=== PATIENT | male | born 1990 | race Caucasian/White ===

== ENCOUNTER 2019-01-18 14:04 | Observation (INO) | payer SELFPAY ==
[2019-01-18] MEDS ORDERED: Sodium Chloride 0.9% 1,000 ML IV ONE ×2 (14:21→16:44)
[2019-01-18] MEDS ORDERED: Ketorolac 30 MG/ML SDV IVPUSH ONE (14:21)
[2019-01-18 15:15] LABS: BLOOD UREA NITROGEN,BUN 8 mg/dL (7.0-18.0); CARBON DIOXIDE,CO2 28.1 mmol/L (21.0-32.0); CHLORIDE,CL 99 mmol/L (98-107); GLUCOSE RANDOM 90 mg/dL (74-106); LIPASE 119 U/L (73-393); POTASSIUM,K 4.1 mmol/L (3.5-5.1); SODIUM,NA 137 mmol/L (136-148)
--- NOTE | 2019-01-18 16:11 | CT ---
CT abdomen and pelvis Technique: Multiple axial sections were obtained from above the dome of the diaphragm inferiorly through the pubic symphysis. Intravenous contrast was utilized. No oral contrast has been given. Findings: Inflammatory change is seen within the left lower abdomen which surrounds a diverticuli near the junction of the descending and sigmoid colons compatible with moderately severe diverticulitis. No free fluid is seen to indicate abscess. Lung bases show nothing acute. Liver contains no focal parenchymal abnormality. Spleen appears within normal limits. Adrenal glands show no nodule. Pancreas is within normal limits. Kidneys show symmetric contrast enhancement without hydronephrosis or mass. Aorta shows no aneurysm. No retroperitoneal adenopathy or mesenteric abnormalities are seen. No pelvic mass or adenopathy is seen. No free fluid is seen. Bone window settings were reviewed which shows anterior wedge deformities within the lower thoracic spine which are most likely old as there is associated disc space narrowing. Nothing acute is suspected within the visualized osseous structures. Impression: 1. Findings compatible with moderately severe diverticulitis as noted above. 2. Other findings believed to be incidental. Diagnostic code #3 This report was dictated in [place] Standard Time MTDD
[2019-01-18] MEDS ORDERED: metroNIDAZOLE/Normal Saline 500 MG in Premix Bag 1 BAG IV ONE (16:14)
[2019-01-18] MEDS ORDERED: Ciprofloxacin in D5W 400 MG in Premix Bag 1 BAG IV STA ×2 (16:14)
--- NOTE | 2019-01-18 16:14 | EDM.PDOC ---
ED HPI GENERAL MEDICAL PROBLEM - General Chief Complaint: Abdominal Pain Stated Complaint: ABD PAIN Time Seen by Provider: 01/18/19 14:05 Source of Information: Reports: Patient History Limitations: Reports: No Limitations - History of Present Illness INITIAL COMMENTS - FREE TEXT/NARRATIVE: HISTORY AND PHYSICAL: History of present illness: Patient is a 28-year-old male who presents to the emergency room today with complaints of left lower quadrant pain 4 days. He states over the past 4 days the pain has progressively gotten worse which she describes as a sharp stabbing pain. Patient denies any fever, chills, headache, change in vision, syncope or near syncope. Denies any chest pain, back pain, shortness of breath or cough. Denies any nausea, vomiting, diarrhea, constipation or dysuria. Has not noted any blood in urine or stool. Patient has been eating and drinking appropriately. No previous history of any GI or problems. Review of systems: As per history of present illness and below otherwise all systems reviewed and negative. Past medical history: As per history of present illness and as reviewed below otherwise noncontributory. Surgical history: As per history of present illness and as reviewed below otherwise noncontributory. Social history: See social history for further information Family history: As per history of present illness and as reviewed below otherwise noncontributory. Physical exam: General: Well-developed and well-nourished 28-year-old male. Alert and oriented. Nontoxic appearing and in no acute distress. HEENT: Atraumatic, normocephalic, pupils equal and reactive bilaterally, negative for conjunctival pallor or scleral icterus, mucous membranes moist, TMs normal bilaterally, throat clear, neck supple, nontender, trachea midline. No drooling or trismus noted. No meningeal signs. No hot potato voice noted. Lungs: Clear to auscultation, breath sounds equal bilaterally, chest nontender. Heart: S1S2, regular rate and rhythm without overt murmur Abdomen: Soft, nondistended, left lower quadrant tenderness to palpation. Negative for masses or hepatosplenomegaly. Negative for costovertebral tenderness. Pelvis is stable nontender. Skin: Intact, warm, dry. No lesions or rashes noted. Extremities: Atraumatic, moves all extremities per self without difficulty or deficits, negative for cords or calf pain. Neurovascular unremarkable. Neuro: Awake, alert, oriented. Cranial nerves II through XII unremarkable. Cerebellum unremarkable. Motor and sensory unremarkable throughout. Exam nonfocal. Notes: Patient does have an elevated white count. CT shows moderately severe diverticulitis. General surgeon, Dr. Polo was here and did review the patient's CT scan. States patient can be admitted to medical surgical floor and consult him if needed. Dr. Hart was consulted and agreeable to accepting this patient. Diagnostics: CBC, CMP, UA, Lipase, CT Abd/Pelvis Therapeutics: IV fluids, Toradol, Cipro, Flagyl Impression: Diverticulitis Plan: Observation admission to Med/Surg Definitive disposition and diagnosis as appropriate pending reevaluation and review of above. LLQ Pain Score (Numeric/FACES): 8 - Related Data Allergies Allergy/AdvReac Type Severity Reaction Status Date / Time No Known Allergies Allergy Verified 01/18/19 14:13 Home Meds: Home Meds . [No Known Home Meds] 01/18/19 [History] Past Medical History - Past Health History Medical/Surgical History: Denies Medical/Surgical History Social & Family History - Family History Family Medical History: Noncontributory - Tobacco Use Smoking Status *Q: Never Smoker - Recreational Drug Use Recreational Drug Use: No ED ROS GENERAL - Review of Systems Review Of Systems: Comprehensive ROS is negative, except as noted in HPI. ED EXAM, GI/ABD - Physical Exam Exam: See Below (See dictation) Course - Vital Signs Last Recorded V/S: Last Vital Signs Temp 98.3 F 01/18/19 14:14 Pulse 117 H 01/18/19 14:14 Resp 18 01/18/19 14:14 BP 165/102 H 01/18/19 14:14 Pulse Ox 97 01/18/19 14:14 - Orders/Labs/Meds Orders: Active Orders 24 hr Category Date Time Status Admission Status [Patient Status] [ADT] Stat ADT 01/18/19 16:16 Ordered UA W/MICROSCOPIC [URIN] Stat Lab 01/18/19 16:10 Results Ciprofloxacin in D5W [Cipro in D5W 400 MG/200 ML] 400 Med 01/18/19 16:14 Ordered mg Premix Bag 1 bag IV NOW metroNIDAZOLE/Normal Saline [Flagyl 500 MG in NS 100 ML Med 01/18/19 16:14 Ordered ] 500 mg Premix Bag 1 bag IV ONETIME Medication Orders Ciprofloxacin/Dextrose 400 mg/ (Premix) 200 mls @ 200 mls/hr IV NOW STA Stop: 01/18/19 17:13 Metronidazole 500 mg/ Premix 100 mls @ 100 mls/hr IV ONETIME ONE Stop: 01/18/19 17:13 Labs: Laboratory Tests 01/18/19 01/18/19 01/18/19 Range/Units 14:43 14:43 16:10 WBC 17.78 H (4.0-11.0) K/uL RBC 5.06 (4.50-5.90) M/uL Hgb 16.5 (13.0-17.0) g/dL Hct 47.1 (38.0-50.0) % MCV 93.1 (80.0-98.0) fL MCH 32.6 H (27.0-32.0) pg MCHC 35.0 (31.0-37.0) g/dL RDW Std Deviation 43.8 (28.0-62.0) fl RDW Coeff of Mata 13 (11.0-15.0) % Plt Count 239 (150-400) K/uL MPV 10.20 (7.40-12.00) fL Neut % (Auto) 79.1 (48.0-80.0) % Lymph % (Auto) 11.4 L (16.0-40.0) % [place] % (Auto) 9.2 (0.0-15.0) % Eos % (Auto) 0.1 (0.0-7.0) % Baso % (Auto) 0.2 (0.0-1.5) % Neut # (Auto) 14.1 H (1.4-5.7) K/uL Lymph # (Auto) 2.0 (0.6-2.4) K/uL [place] # (Auto) 1.6 H (0.0-0.8) K/uL Eos # (Auto) 0.0 (0.0-0.7) K/uL Baso # (Auto) 0.0 (0.0-0.1) K/uL Nucleated RBC % 0.0 /100WBC Nucleated RBCs # 0 K/uL Sodium 137 (136-148) mmol/L Potassium 4.1 (3.5-5.1) mmol/L Chloride 99 (98-107) mmol/L Carbon Dioxide 28.1 (21.0-32.0) mmol/L BUN 8 (7.0-18.0) mg/dL Creatinine 1.0 (0.8-1.3) mg/dL Est Cr Clr Drug Dosing 118.18 mL/min Estimated GFR (MDRD) > 60.0 ml/min Glucose 90 (74-106) mg/dL Calcium 9.4 (8.5-10.1) mg/dL Total Bilirubin 0.8 (0.2-1.0) mg/dL AST 18 (15-37) IU/L ALT 49 (14-63) IU/L Alkaline Phosphatase 129 H (46-116) U/L Total Protein 8.7 H (6.4-8.2) g/dL Albumin 4.2 (3.4-5.0) g/dL Globulin 4.5 H (2.6-4.0) g/dL Albumin/Globulin Ratio 0.9 (0.9-1.6) Lipase 119 (73-393) U/L Urine Color YELLOW Urine Appearance CLEAR Urine pH 7.0 (5.0-8.0) Ur Specific [place] 1.010 (1.001-1.035) Urine Protein TRACE H (NEGATIVE) mg/dL Urine Glucose (UA) NEGATIVE (NEGATIVE) mg/dL Urine Ketones NEGATIVE (NEGATIVE) mg/dL Urine Occult Blood NEGATIVE (NEGATIVE) Urine Nitrite NEGATIVE (NEGATIVE) Urine Bilirubin NEGATIVE (NEGATIVE) Urine Urobilinogen 0.2 (<2.0) EU/dL Ur Leukocyte Esterase NEGATIVE (NEGATIVE) Meds: Medications Generic Name Dose Route Start Last Admin Trade Name Freq PRN Reason Stop Dose Admin Ciprofloxacin/Dextrose 400 mg/ 200 mls @ 200 mls/hr 01/18/19 16:14 Premix IV 01/18/19 17:13 NOW STA Metronidazole 500 mg/ Premix 100 mls @ 100 mls/hr 01/18/19 16:14 IV 01/18/19 17:13 ONETIME ONE Discontinued Medications Generic Name Dose Route Start Last Admin Trade Name Freq PRN Reason Stop Dose Admin Sodium Chloride 1,000 mls @ 999 mls/hr 01/18/19 14:21 01/18/19 15:20 Normal Saline IV 01/18/19 15:21 999 mls/hr STAT ONE Administration Ketorolac Tromethamine 30 mg 01/18/19 14:21 01/18/19 15:19 Toradol IVPUSH 01/18/19 14:22 30 mg ONETIME ONE Administration Departure - Departure Time of Disposition: 16:21 Disposition: Refer to Observation Clinical Impression: Diverticulitis - Discharge Information Referrals: PCP,None [Primary Care Provider] - Forms: ED Department Discharge - My Orders Last 24 Hours: My Active Orders 01/18/19 16:10 UA W/MICROSCOPIC [URIN] Stat 01/18/19 16:14 Ciprofloxacin in D5W [Cipro in D5W 400 MG/200 ML] 400 mg Premix Bag 1 bag IV NOW metroNIDAZOLE/Normal Saline [Flagyl 500 MG in NS 100 ML] 500 mg Premix Bag 1 bag IV ONETIME 01/18/19 16:16 Admission Status [Patient Status] [ADT] Stat - Assessment/Plan Last 24 Hours: My Active Orders 01/18/19 16:10 UA W/MICROSCOPIC [URIN] Stat 01/18/19 16:14 Ciprofloxacin in D5W [Cipro in D5W 400 MG/200 ML] 400 mg Premix Bag 1 bag IV NOW metroNIDAZOLE/Normal Saline [Flagyl 500 MG in NS 100 ML] 500 mg Premix Bag 1 bag IV ONETIME 01/18/19 16:16 Admission Status [Patient Status] [ADT] Stat
[2019-01-18] MEDS ORDERED: Ondansetron 4 MG/2 ML SDV IVPUSH PRN (16:42)
[2019-01-18] MEDS ORDERED: Ondansetron 4 MG Tab.DIS PO PRN (16:42)
[2019-01-18] MEDS ORDERED: Ketorolac 30 MG/ML SDV IM PRN (16:42)
[2019-01-18] MEDS ORDERED: Acetaminophen 325 MG Tab PO PRN (16:42)
[2019-01-18] MEDS ORDERED: Enoxaparin 40 MG/0.4 ML Syringe SUBCUT SCH (16:45)
--- NOTE | 2019-01-18 17:02 | PCM.HP.2 ---
<Bakari Hoover M - Last Filed: 01/18/19 17:14> H&P History of Present Illness - General Date of Service: 01/18/19 Admit Problem/Dx: Admission Diagnosis/Problem Admission Diagnosis/Problem Diverticulitis Source of Information: Patient History Limitations: Reports: No Limitations - History of Present Illness Initial Comments - Free Text/Narative: 28-year-old male presented to ER with complaints of LLQ abdominal pain. He has no significant past medical history. Pain has been steadily worsening over the past 4 days and is described as being throbbing in nature. He also had subjective fevers, sweats and decreased appetite. Denies nausea, vomiting, shortness of breath, chest pain, diarrhea, blood in stool or blood in urine. Non -smoker, drinks alcohol socially and denies illicit drug use. In the ER, CT revealed moderate-severe diverticulitis and patient was started on cipro and flagyl. He was also given 1L IV NS bolus. He was admitted for further evaluation. LLQ Pain Score (Numeric/FACES): 8 - Related Data Allergies/Adverse Reactions: Allergies Allergy/AdvReac Type Severity Reaction Status Date / Time No Known Allergies Allergy Verified 01/18/19 21:15 Home Medications: Home Meds Ciprofloxacin [Ciprofloxacin HCl] 500 mg PO BID 9 Days #18 tablet 01/19/19 [Rx] metroNIDAZOLE 500 mg PO Q8H 9 Days #54 tablet 01/19/19 [Rx] Past Medical History - Past Health History Medical/Surgical History: Denies Medical/Surgical History Social & Family History - Family History Family Medical History: Noncontributory - Tobacco Use Smoking Status *Q: Never Smoker - Recreational Drug Use Recreational Drug Use: No H&P Review of Systems - Review of Systems: Review Of Systems: Comprehensive ROS is negative, except as noted in HPI. Exam - Exam Exam: See Below - Vital Signs Vital Signs: Last Vital Signs Temp 97.6 F 01/18/19 16:49 Pulse 98 01/18/19 16:49 Resp 17 01/18/19 16:49 BP 137/83 01/18/19 16:49 Pulse Ox 97 01/18/19 16:49 Weight: 99.79 kg - Exam General: Alert, Oriented, Cooperative HEENT: Conjunctiva Clear, EOMI, Hearing Intact, Mucosa Moist & [place], Posterior Pharynx Clear Neck: Supple, Trachea Midline Lungs: Clear to Auscultation, Normal Respiratory Effort Cardiovascular: Regular Rate, Regular Rhythm GI/Abdominal Exam: Normal Bowel Sounds, Soft, No Distention, Other (LLQ tenderness to palpation) Extremities: Normal Inspection, No Pedal Edema Peripheral Pulses: 2+: Radial (L), Radial (R) Skin: Warm, Dry, Intact Neurological: Cranial Nerves Intact, Strength Equal Bilateral, Normal Speech, Normal Tone Neuro Extensive - Mental Status: Alert, Oriented x3, Normal Mood/Affect - Patient Data Lab Results Last 24 hrs: Laboratory Results - last 24 hr 01/18/19 01/18/19 01/18/19 Range/Units 14:43 14:43 16:10 WBC 17.78 H (4.0-11.0) K/uL RBC 5.06 (4.50-5.90) M/uL Hgb 16.5 (13.0-17.0) g/dL Hct 47.1 (38.0-50.0) % MCV 93.1 (80.0-98.0) fL MCH 32.6 H (27.0-32.0) pg MCHC 35.0 (31.0-37.0) g/dL RDW Std Deviation 43.8 (28.0-62.0) fl RDW Coeff of Mata 13 (11.0-15.0) % Plt Count 239 (150-400) K/uL MPV 10.20 (7.40-12.00) fL Neut % (Auto) 79.1 (48.0-80.0) % Lymph % (Auto) 11.4 L (16.0-40.0) % [place] % (Auto) 9.2 (0.0-15.0) % Eos % (Auto) 0.1 (0.0-7.0) % Baso % (Auto) 0.2 (0.0-1.5) % Neut # (Auto) 14.1 H (1.4-5.7) K/uL Lymph # (Auto) 2.0 (0.6-2.4) K/uL [place] # (Auto) 1.6 H (0.0-0.8) K/uL Eos # (Auto) 0.0 (0.0-0.7) K/uL Baso # (Auto) 0.0 (0.0-0.1) K/uL Nucleated RBC % 0.0 /100WBC Nucleated RBCs # 0 K/uL Sodium 137 (136-148) mmol/L Potassium 4.1 (3.5-5.1) mmol/L Chloride 99 (98-107) mmol/L Carbon Dioxide 28.1 (21.0-32.0) mmol/L BUN 8 (7.0-18.0) mg/dL Creatinine 1.0 (0.8-1.3) mg/dL Est Cr Clr Drug Dosing 118.18 mL/min Estimated GFR (MDRD) > 60.0 ml/min Glucose 90 (74-106) mg/dL Calcium 9.4 (8.5-10.1) mg/dL Total Bilirubin 0.8 (0.2-1.0) mg/dL AST 18 (15-37) IU/L ALT 49 (14-63) IU/L Alkaline Phosphatase 129 H (46-116) U/L Total Protein 8.7 H (6.4-8.2) g/dL Albumin 4.2 (3.4-5.0) g/dL Globulin 4.5 H (2.6-4.0) g/dL Albumin/Globulin Ratio 0.9 (0.9-1.6) Lipase 119 (73-393) U/L Urine Color YELLOW Urine Appearance CLEAR Urine pH 7.0 (5.0-8.0) Ur Specific [place] 1.010 (1.001-1.035) Urine Protein TRACE H (NEGATIVE) mg/dL Urine Glucose (UA) NEGATIVE (NEGATIVE) mg/dL Urine Ketones NEGATIVE (NEGATIVE) mg/dL Urine Occult Blood NEGATIVE (NEGATIVE) Urine Nitrite NEGATIVE (NEGATIVE) Urine Bilirubin NEGATIVE (NEGATIVE) Urine Urobilinogen 0.2 (<2.0) EU/dL Ur Leukocyte Esterase NEGATIVE (NEGATIVE) Urine RBC 0-2 (0-2/HPF) Urine WBC 0-2 (0-5/HPF) Ur Epithelial Cells RARE (NONE-FEW) Urine Bacteria RARE (NEGATIVE) Result Diagrams: 01/18/19 14:43 01/18/19 14:43 Problem List Initiated/Reviewed/Updated: Yes Orders Last 24hrs: Active Orders 24 hr Category Date Time Status Admission Status [Patient Status] [ADT] Stat ADT 01/18/19 16:16 Active Oxygen Therapy [RC] PRN Care 01/18/19 16:42 Ordered Up ad Jeaneth [RC] ASDIRECTED Care 01/18/19 16:42 Ordered VTE/DVT Education [RC] PER UNIT ROUTINE Care 01/18/19 16:42 Ordered Vital Signs [RC] Q4H Care 01/18/19 16:42 Ordered Clear Liquid Diet [DIET] Diet 01/18/19 Breakfast Ordered CBC WITH AUTO DIFF [HEME] AM Lab 01/19/19 05:11 Ordered CMP [COMPREHENSIVE METABOLIC PN,CMP] [CHEM] AM Lab 01/19/19 05:11 Ordered CULTURE BLOOD [BC] Stat Lab 01/18/19 16:44 Ordered CULTURE BLOOD [BC] Stat Lab 01/18/19 16:44 Ordered LACTIC ACID,WHOLE BLOOD [BG] Stat Lab 01/18/19 16:45 Ordered Acetaminophen [Tylenol] Med 01/18/19 16:42 Ordered 650 mg PO Q4H PRN Ciprofloxacin in D5W [Cipro in D5W 400 MG/200 ML] 400 Med 01/18/19 16:14 Active mg Premix Bag 1 bag IV NOW Ciprofloxacin in D5W [Cipro in D5W 400 MG/200 ML] 400 Med 01/18/19 17:00 Ordered mg Premix Bag 1 bag IV Q12H Enoxaparin [Lovenox] Med 01/18/19 16:45 Ordered 40 mg SUBCUT Q24H Ketorolac [Toradol] Med 01/18/19 16:42 Ordered 30 mg IM Q6H PRN Ondansetron [Zofran ODT] Med 01/18/19 16:42 Ordered 4 mg PO Q4H PRN Ondansetron [Zofran] Med 01/18/19 16:42 Ordered 4 mg IVPUSH Q4H PRN Sodium Chloride 0.9% [Normal Saline] 1,000 ml Med 01/18/19 16:44 Ordered IV STAT metroNIDAZOLE/Normal Saline [Flagyl 500 MG in NS 100 ML Med 01/18/19 16:14 Active ] 500 mg Premix Bag 1 bag IV ONETIME metroNIDAZOLE/Normal Saline [Flagyl 500 MG in NS 100 ML Med 01/18/19 18:00 Ordered ] 500 mg Premix Bag 1 bag IV QID Blood Culture x2 Reflex Set [OM.PC] Stat Oth 01/18/19 16:44 Ordered Resuscitation Status Routine Resus Stat 01/18/19 16:42 Ordered Medication Orders Acetaminophen (Tylenol) 650 mg PO Q4H PRN PRN Reason: Pain (Mild 1-3)/fever Enoxaparin Sodium (Lovenox) 40 mg SUBCUT Q24H SAM Ciprofloxacin/Dextrose 400 mg/ (Premix) 200 mls @ 200 mls/hr IV NOW STA Stop: 01/18/19 17:13 Last Admin: 01/18/19 16:21 Dose: 200 mls/hr Metronidazole 500 mg/ Premix 100 mls @ 100 mls/hr IV ONETIME ONE Stop: 01/18/19 17:13 Sodium Chloride (Normal Saline) 1,000 mls @ 999 mls/hr IV STAT ONE Stop: 01/18/19 17:44 Ciprofloxacin/Dextrose 400 mg/ (Premix) 200 mls @ 200 mls/hr IV Q12H SAM Metronidazole 500 mg/ Premix 100 mls @ 100 mls/hr IV QID SAM Ketorolac Tromethamine (Toradol) 30 mg IM Q6H PRN PRN Reason: Pain (moderate 4-6) Ondansetron HCl (Zofran Odt) 4 mg PO Q4H PRN PRN Reason: nausea, able to take PO Ondansetron HCl (Zofran) 4 mg IVPUSH Q4H PRN PRN Reason: Nausea Assessment/Plan Comment:: Assessment: 1. Acute diverticulitis. Plan: 1. Will order blood cultures and check lactate level. Patient received 1 L NS bolus in ER, will give additional 1 L NS bolus and continue IV maintenance fluids. Continue ciprofloxacin and flagyl. Pain control with IV toradol 30 mg q6h prn and tylenol prn. Will keep on clear liquid diet for now. <Matt Ray - Last Filed: 01/20/19 13:21> H&P History of Present Illness - General Admit Problem/Dx: Admission Diagnosis/Problem Admission Diagnosis/Problem Diverticulitis Exam - Vital Signs Vital Signs: Last Vital Signs Temp 36.7 C 01/19/19 12:00 Pulse 77 01/19/19 12:00 Resp 18 01/19/19 12:00 BP 127/71 01/19/19 12:00 Pulse Ox 98 01/19/19 12:00 - Patient Data Result Diagrams: 01/19/19 05:50 01/19/19 05:50 Jose G Results Last 24 hrs: Microbiology 01/18/19 17:04 Aerobic Blood Culture - Preliminary Blood - Venous - Lab Draw NO GROWTH AFTER 1 DAY Anaerobic Blood Culture - Preliminary NO GROWTH AFTER 1 DAY 01/18/19 16:52 Aerobic Blood Culture - Preliminary Blood - Venous NO GROWTH AFTER 1 DAY Anaerobic Blood Culture - Preliminary NO GROWTH AFTER 1 DAY Assessment/Plan Comment:: I performed a history and physical exam of the patient and discussed management with resident. I have reviewed the residents note and agree with documented findings and plan unless otherwise specified in my note.
[2019-01-18] MEDS ORDERED: Ketorolac 30 MG/ML SDV IVPUSH PRN (17:05)
[2019-01-18] MEDS: Ciprofloxacin in D5W 400 MG in Premix Bag 1 BAG IV SCH ×2 (17:07)
[2019-01-18] MEDS: metroNIDAZOLE/Normal Saline 500 MG in Premix Bag 1 BAG IV SCH (17:07)
[2019-01-18] MEDS ORDERED: Sodium Chloride 0.9% 1,000 ML IV SCH (18:00)
[2019-01-18] MEDS ORDERED: Iopamidol 755 MG/ML 500 ML Multipack Bottle IVPUSH STA (18:15)
[2019-01-19] MEDS: metroNIDAZOLE/Normal Saline 500 MG in Premix Bag 1 BAG IV SCH ×2 (00:19→07:18)
[2019-01-19] MEDS: Ciprofloxacin in D5W 400 MG in Premix Bag 1 BAG IV SCH ×2 (05:44)
[2019-01-19 06:50] LABS: BLOOD UREA NITROGEN,BUN 9 mg/dL (7.0-18.0); CARBON DIOXIDE,CO2 27.2 mmol/L (21.0-32.0); CHLORIDE,CL 106 mmol/L (98-107); GLUCOSE RANDOM 108 mg/dL (74-106); POTASSIUM,K 4.5 mmol/L (3.5-5.1); SODIUM,NA 139 mmol/L (136-148)
[2019-01-19] MEDS ORDERED: metroNIDAZOLE 250 MG Tab PO SCH (11:00)
--- NOTE | 2019-01-19 11:49 | PCM.DCSUM1 ---
<Bakari Hoover M - Last Filed: 01/19/19 13:14> Discharge Summary - Hospital Course Free Text/Narrative:: 28-year-old male admitted for acute diverticulitis. He has no significant past medical history. He was treated with IV cipro and flagyl. Leukocytosis resolved on day of discharge. He remained hemodynamically stable and reported improvement in his abdominal pain during hospitalization. He was discharged on ciprofloxacin and metronidazole for 9 additional days. Advised to follow-up with PCP. - Discharge Data Discharge Date: 01/19/19 Discharge Disposition: Home, Self-Care 01 Condition: Stable - Referral to Home Health Primary Care Physician: PCP None - Patient Instructions Diet: Usual Diet as Tolerated Activity: As Tolerated Notify Provider of: Fever, Increased Pain, Swelling and Redness, Drainage, Nausea and/or Vomiting - Discharge Plan *PRESCRIPTION DRUG MONITORING PROGRAM REVIEWED*: Not Applicable *COPY OF PRESCRIPTION DRUG MONITORING REPORT IN PATIENT GASPER: Not Applicable Prescriptions/Med Rec: Ciprofloxacin [Ciprofloxacin HCl] 500 mg PO BID 9 Days #18 tablet metroNIDAZOLE 500 mg PO Q8H 9 Days #54 tablet Home Medications: Home Meds Ciprofloxacin [Ciprofloxacin HCl] 500 mg PO BID 9 Days #18 tablet 01/19/19 [Rx] metroNIDAZOLE 500 mg PO Q8H 9 Days #54 tablet 01/19/19 [Rx] Patient Handouts: Diverticulitis, Ciprofloxacin tablets, Metronidazole tablets or capsules Referrals: [facility] [Outside] (Please call on Monday and get 1 week hospital follow-up appointment.) PCP,None [Primary Care Provider] - - Discharge Summary/Plan Comment DC Time >30 min.: No - Patient Data Vitals - Most Recent: Last Vital Signs Temp 97.7 F 01/19/19 07:45 Pulse 69 01/19/19 07:45 Resp 18 01/19/19 07:45 BP 110/73 01/19/19 07:45 Pulse Ox 96 01/19/19 07:45 Weight - Most Recent: 103.6 kg I&O - Last 24 hours: Intake & Output 01/18/19 01/19/19 01/19/19 22:59 06:59 14:59 Intake Total 2010 200 Output Total 200 Balance 1811 200 Lab Results - Last 24 hrs: Laboratory Results - last 24 hr 11/29/19 11/29/19 11/29/19 Range/Units 14:43 14:43 16:10 WBC 17.78 H (4.0-11.0) K/uL RBC 5.06 (4.50-5.90) M/uL Hgb 16.5 (13.0-17.0) g/dL Hct 47.1 (38.0-50.0) % MCV 93.1 (80.0-98.0) fL MCH 32.6 H (27.0-32.0) pg MCHC 35.0 (31.0-37.0) g/dL RDW Std Deviation 43.8 (28.0-62.0) fl RDW Coeff of Mata 13 (11.0-15.0) % Plt Count 239 (150-400) K/uL MPV 10.20 (7.40-12.00) fL Neut % (Auto) 79.1 (48.0-80.0) % Lymph % (Auto) 11.4 L (16.0-40.0) % [place] % (Auto) 9.2 (0.0-15.0) % Eos % (Auto) 0.1 (0.0-7.0) % Baso % (Auto) 0.2 (0.0-1.5) % Neut # (Auto) 14.1 H (1.4-5.7) K/uL Lymph # (Auto) 2.0 (0.6-2.4) K/uL Schoolcraft # (Auto) 1.6 H (0.0-0.8) K/uL Eos # (Auto) 0.0 (0.0-0.7) K/uL Baso # (Auto) 0.0 (0.0-0.1) K/uL Nucleated RBC % 0.0 /100WBC Nucleated RBCs # 0 K/uL Lactate (0.20-2.00) mmol/L Sodium 137 (136-148) mmol/L Potassium 4.1 (3.5-5.1) mmol/L Chloride 99 (98-107) mmol/L Carbon Dioxide 28.1 (21.0-32.0) mmol/L BUN 8 (7.0-18.0) mg/dL Creatinine 1.0 (0.8-1.3) mg/dL Est Cr Clr Drug Dosing 118.18 mL/min Estimated GFR (MDRD) > 60.0 ml/min Glucose 90 (74-106) mg/dL Calcium 9.4 (8.5-10.1) mg/dL Total Bilirubin 0.8 (0.2-1.0) mg/dL AST 18 (15-37) IU/L ALT 49 (14-63) IU/L Alkaline Phosphatase 129 H (46-116) U/L Total Protein 8.7 H (6.4-8.2) g/dL Albumin 4.2 (3.4-5.0) g/dL Globulin 4.5 H (2.6-4.0) g/dL Albumin/Globulin Ratio 0.9 (0.9-1.6) Lipase 119 (73-393) U/L Urine Color YELLOW Urine Appearance CLEAR Urine pH 7.0 (5.0-8.0) Ur Specific Sargent 1.010 (1.001-1.035) Urine Protein TRACE H (NEGATIVE) mg/dL Urine Glucose (UA) NEGATIVE (NEGATIVE) mg/dL Urine Ketones NEGATIVE (NEGATIVE) mg/dL Urine Occult Blood NEGATIVE (NEGATIVE) Urine Nitrite NEGATIVE (NEGATIVE) Urine Bilirubin NEGATIVE (NEGATIVE) Urine Urobilinogen 0.2 (<2.0) EU/dL Ur Leukocyte Esterase NEGATIVE (NEGATIVE) Urine RBC 0-2 (0-2/HPF) Urine WBC 0-2 (0-5/HPF) Ur Epithelial Cells RARE (NONE-FEW) Urine Bacteria RARE (NEGATIVE) 01/18/19 01/19/19 01/19/19 Range/Units 17:04 05:50 05:50 WBC 10.31 (4.0-11.0) K/uL RBC 4.28 L (4.50-5.90) M/uL Hgb 13.4 (13.0-17.0) g/dL Hct 41.0 (38.0-50.0) % MCV 95.8 (80.0-98.0) fL MCH 31.3 (27.0-32.0) pg MCHC 32.7 (31.0-37.0) g/dL RDW Std Deviation 45.6 (28.0-62.0) fl RDW Coeff of Mata 13 (11.0-15.0) % Plt Count 212 (150-400) K/uL MPV 10.30 (7.40-12.00) fL Neut % (Auto) 66.6 (48.0-80.0) % Lymph % (Auto) 17.6 (16.0-40.0) % [place] % (Auto) 14.4 (0.0-15.0) % Eos % (Auto) 1.2 (0.0-7.0) % Baso % (Auto) 0.2 (0.0-1.5) % Neut # (Auto) 6.9 H (1.4-5.7) K/uL Lymph # (Auto) 1.8 (0.6-2.4) K/uL [place] # (Auto) 1.5 H (0.0-0.8) K/uL Eos # (Auto) 0.1 (0.0-0.7) K/uL Baso # (Auto) 0.0 (0.0-0.1) K/uL Nucleated RBC % 0.0 /100WBC Nucleated RBCs # 0 K/uL Lactate 0.8 (0.20-2.00) mmol/L Sodium 139 (136-148) mmol/L Potassium 4.5 (3.5-5.1) mmol/L Chloride 106 (98-107) mmol/L Carbon Dioxide 27.2 (21.0-32.0) mmol/L BUN 9 (7.0-18.0) mg/dL Creatinine 0.8 (0.8-1.3) mg/dL Est Cr Clr Drug Dosing 147.72 mL/min Estimated GFR (MDRD) > 60.0 ml/min Glucose 108 H (74-106) mg/dL Calcium 8.5 (8.5-10.1) mg/dL Total Bilirubin 0.9 (0.2-1.0) mg/dL AST 17 (15-37) IU/L ALT 36 (14-63) IU/L Alkaline Phosphatase 92 (46-116) U/L Total Protein 6.5 (6.4-8.2) g/dL Albumin 2.9 L (3.4-5.0) g/dL Globulin 3.6 (2.6-4.0) g/dL Albumin/Globulin Ratio 0.8 L (0.9-1.6) Lipase (73-393) U/L Urine Color Urine Appearance Urine pH (5.0-8.0) Ur Specific Sargent (1.001-1.035) Urine Protein (NEGATIVE) mg/dL Urine Glucose (UA) (NEGATIVE) mg/dL Urine Ketones (NEGATIVE) mg/dL Urine Occult Blood (NEGATIVE) Urine Nitrite (NEGATIVE) Urine Bilirubin (NEGATIVE) Urine Urobilinogen (<2.0) EU/dL Ur Leukocyte Esterase (NEGATIVE) Urine RBC (0-2/HPF) Urine WBC (0-5/HPF) Ur Epithelial Cells (NONE-FEW) Urine Bacteria (NEGATIVE) Med Orders - Current: Current Medications Acetaminophen (Tylenol) 650 mg PO Q4H PRN PRN Reason: Pain (Mild 1-3)/fever Ciprofloxacin (Ciprofloxacin Hcl) 500 mg PO BID SAM Enoxaparin Sodium (Lovenox) 40 mg SUBCUT Q24H [facility] Last Admin: 01/18/19 18:22 Dose: 40 mg Ketorolac Tromethamine (Toradol) 30 mg IVPUSH Q6H PRN PRN Reason: Pain (moderate 4-6) Last Admin: 01/19/19 00:20 Dose: 30 mg Metronidazole (Metronidazole) 500 mg PO Q8H [facility] Last Admin: 01/19/19 11:29 Dose: 500 mg Ondansetron HCl (Zofran Odt) 4 mg PO Q4H PRN PRN Reason: nausea, able to take PO Ondansetron HCl (Zofran) 4 mg IVPUSH Q4H PRN PRN Reason: Nausea Discontinued Medications Sodium Chloride (Normal Saline) 1,000 mls @ 999 mls/hr IV STAT ONE Stop: 01/18/19 15:21 Last Admin: 01/18/19 15:20 Dose: 999 mls/hr Ciprofloxacin/Dextrose 400 mg/ (Premix) 200 mls @ 200 mls/hr IV NOW STA Stop: 01/18/19 17:13 Last Admin: 01/18/19 16:21 Dose: 200 mls/hr Metronidazole 500 mg/ Premix 100 mls @ 100 mls/hr IV ONETIME ONE Stop: 01/18/19 17:13 Last Admin: 01/18/19 17:47 Dose: 100 mls/hr Sodium Chloride (Normal Saline) 1,000 mls @ 999 mls/hr IV STAT ONE Stop: 01/18/19 17:44 Last Admin: 01/18/19 18:21 Dose: 999 mls/hr Ciprofloxacin/Dextrose 400 mg/ (Premix) 200 mls @ 200 mls/hr IV Q12H [facility] Last Admin: 01/19/19 05:44 Dose: 200 mls/hr Metronidazole 500 mg/ Premix 100 mls @ 100 mls/hr IV QID [facility] Last Admin: 01/19/19 07:18 Dose: 100 mls/hr Sodium Chloride (Normal Saline) 1,000 mls @ 125 mls/hr IV ASDIRECTED [facility] Last Admin: 01/18/19 20:22 Dose: 125 mls/hr Iopamidol (Isovue Multipack-370 (76%)) 100 ml IVPUSH ONETIME STA Stop: 01/18/19 18:16 Last Admin: 01/18/19 18:15 Dose: 100 ml Ketorolac Tromethamine (Toradol) 30 mg IVPUSH ONETIME ONE Stop: 01/18/19 14:22 Last Admin: 01/18/19 15:19 Dose: 30 mg Ketorolac Tromethamine (Toradol) 30 mg IM Q6H PRN PRN Reason: Pain (moderate 4-6) <Matt Ray - Last Filed: 01/20/19 13:27> Discharge Summary - Hospital Course HPI Initial Comments: I have seen and evaluated the patient and agree with the residents note unless specified in my note - Referral to Home Health Primary Care Physician: PCP None - Patient Data Vitals - Most Recent: Last Vital Signs Temp 36.7 C 01/19/19 12:00 Pulse 77 01/19/19 12:00 Resp 18 01/19/19 12:00 BP 127/71 01/19/19 12:00 Pulse Ox 98 01/19/19 12:00 DIAZ Results - Last 24 hrs: Microbiology 01/18/19 17:04 Aerobic Blood Culture - Preliminary Blood - Venous - Lab Draw NO GROWTH AFTER 1 DAY Anaerobic Blood Culture - Preliminary NO GROWTH AFTER 1 DAY 01/18/19 16:52 Aerobic Blood Culture - Preliminary Blood - Venous NO GROWTH AFTER 1 DAY Anaerobic Blood Culture - Preliminary NO GROWTH AFTER 1 DAY Med Orders - Current: Current Medications Discontinued Medications Acetaminophen (Tylenol) 650 mg PO Q4H PRN PRN Reason: Pain (Mild 1-3)/fever Ciprofloxacin (Ciprofloxacin Hcl) 500 mg PO BID [facility] Enoxaparin Sodium (Lovenox) 40 mg SUBCUT Q24H [facility] Last Admin: 01/18/19 18:22 Dose: 40 mg Sodium Chloride (Normal Saline) 1,000 mls @ 999 mls/hr IV STAT ONE Stop: 01/18/19 15:21 Last Admin: 01/18/19 15:20 Dose: 999 mls/hr Ciprofloxacin/Dextrose 400 mg/ (Premix) 200 mls @ 200 mls/hr IV NOW STA Stop: 01/18/19 17:13 Last Admin: 01/18/19 16:21 Dose: 200 mls/hr Metronidazole 500 mg/ Premix 100 mls @ 100 mls/hr IV ONETIME ONE Stop: 01/18/19 17:13 Last Admin: 01/18/19 17:47 Dose: 100 mls/hr Sodium Chloride (Normal Saline) 1,000 mls @ 999 mls/hr IV STAT ONE Stop: 01/18/19 17:44 Last Admin: 01/18/19 18:21 Dose: 999 mls/hr Ciprofloxacin/Dextrose 400 mg/ (Premix) 200 mls @ 200 mls/hr IV Q12H [facility] Last Admin: 01/19/19 05:44 Dose: 200 mls/hr Metronidazole 500 mg/ Premix 100 mls @ 100 mls/hr IV QID [facility] Last Admin: 01/19/19 07:18 Dose: 100 mls/hr Sodium Chloride (Normal Saline) 1,000 mls @ 125 mls/hr IV ASDIRECTED [facility] Last Admin: 01/18/19 20:22 Dose: 125 mls/hr Iopamidol (Isovue Multipack-370 (76%)) 100 ml IVPUSH ONETIME STA Stop: 01/18/19 18:16 Last Admin: 01/18/19 18:15 Dose: 100 ml Ketorolac Tromethamine (Toradol) 30 mg IVPUSH ONETIME ONE Stop: 01/18/19 14:22 Last Admin: 01/18/19 15:19 Dose: 30 mg Ketorolac Tromethamine (Toradol) 30 mg IM Q6H PRN PRN Reason: Pain (moderate 4-6) Ketorolac Tromethamine (Toradol) 30 mg IVPUSH Q6H PRN PRN Reason: Pain (moderate 4-6) Last Admin: 01/19/19 00:20 Dose: 30 mg Metronidazole (Metronidazole) 500 mg PO Q8H [facility] Last Admin: 01/19/19 11:29 Dose: 500 mg Ondansetron HCl (Zofran Odt) 4 mg PO Q4H PRN PRN Reason: nausea, able to take PO Ondansetron HCl (Zofran) 4 mg IVPUSH Q4H PRN PRN Reason: Nausea
[2019-01-19] MEDS ORDERED: Ciprofloxacin 500 MG Tab PO SCH (21:00)
== END 2019-01-19 14:05 | disposition home or self-care (01) ==
LOC: MW.ED 14:04 → MW.MS 16:16
PROVIDERS: ADMIT Student in an Organized Health Care Education/Training Program; ATTEND Student in an Organized Health Care Education/Training Program
DX: K57.92 Diverticulitis of intestine, part unspecified, without perforation or abscess without bleeding (principal)
CPT/HCPCS: 36415; 74177; 80053; 81001; 83605; 83690; 85025; 87040; A9270; J0744; J1650; J1885; J3490; J7040; Q9967; 96361; 96365; 96366; 96372; 96375; 96376; 99285-25; G0378